=== PATIENT | male | born 1965 | race Caucasian/White ===

== ENCOUNTER → 2016-10-26 | Outpatient (CLI) | payer OTHER | LOC: KOH-I 12:06 | DX: S60.032A Contusion of left middle finger without damage to nail, initial encounter (principal) | CPT/HCPCS: 73140 ==

== ENCOUNTER → 2016-12-14 | Outpatient (CLI) | payer BC, OTHER | LOC: KOH-I 13:56 | DX: M50.13 Cervical disc disorder with radiculopathy, cervicothoracic region (principal); R53.1 Weakness; M50.30 Other cervical disc degeneration, unspecified cervical region; G93.89 Other specified disorders of brain | CPT/HCPCS: 72141 ==

== ENCOUNTER → 2021-04-08 | Outpatient (CLI) | payer BC ==
[~2021-04-08] MED LIST: DEPAKOTE500 MG PO; ECOTRIN81 MG PO; FARXIGA10 MG PO; GLUCOPHAGE1000 MG PO; IMITREX6 MG/0.51 SC; K-DUR TAB 20 M20 MEQ PO; LASIX20 MG PO; LIPITOR TAB 2020 MG PO; LISINOPRIL10 MG PO; LOPRESSOR50 MG PO; NEURONTIN 400400 MG PO; NOVOLOG MI100 UNIT/1 SQ; PAXIL40 MG PO; VICTOZA 1818 MG/3 ML SC; ZANAFLEX4 MG PO
[2021-04-08 16:14] LABS: BUN/CREATININE RATIO 16 (0-10)
== END ==
LOC: US 13:17
PROVIDERS: Internal Medicine Nephrology
DX: R80.9 Proteinuria, unspecified (principal); N28.1 Cyst of kidney, acquired
CPT/HCPCS: 36415; 80053

== ENCOUNTER → 2021-07-21 | Outpatient (CLI) | payer BC | LOC: CT 08:39 | DX: F03.91 Unspecified dementia, unspecified severity, with behavioral disturbance (principal); G43.701 Chronic migraine without aura, not intractable, with status migrainosus; R42 Dizziness and giddiness; G47.09 Other insomnia; J32.9 Chronic sinusitis, unspecified | CPT/HCPCS: 70470; 93880; Q9967 ==

== ENCOUNTER → 2021-11-18 | Outpatient (CLI) | payer BC, MEDICARE ==
[2021-11-19 08:16] LABS: RPR Non Reactive (Non Reactive)
[2021-11-19 13:16] LABS: RHEUMATOID ARTHRITIS FACTOR <10.0 IU/mL (<14.0)
[2021-11-19 14:17] LABS: ANTI-DSDNA ANTIBODIES <1 IU/mL (0-9)
[2021-11-19 15:11] LABS: LYME TOTAL ANTIBODY EIA Negative (Negative)
== END ==
LOC: LAB 09:15
PROVIDERS: Psychiatry & Neurology Neurology
DX: E11.42 Type 2 diabetes mellitus with diabetic polyneuropathy (principal); M79.604 Pain in right leg; M79.605 Pain in left leg; F41.9 Anxiety disorder, unspecified; R20.0 Anesthesia of skin; G43.709 Chronic migraine without aura, not intractable, without status migrainosus; R41.3 Other amnesia; G44.309 Post-traumatic headache, unspecified, not intractable; R26.81 Unsteadiness on feet; Z87.891 Personal history of nicotine dependence
CPT/HCPCS: 36415; 82607; 82746; 84443; 85652; 86038; 86225; 86255; 86431; 86592; 86618

== ENCOUNTER → 2021-11-30 | Outpatient (CLI) | payer BC, MEDICARE | LOC: EMI 10:39 | DX: G43.709 Chronic migraine without aura, not intractable, without status migrainosus (principal); G44.309 Post-traumatic headache, unspecified, not intractable; F41.9 Anxiety disorder, unspecified; R20.0 Anesthesia of skin; M79.604 Pain in right leg; M79.605 Pain in left leg; R41.3 Other amnesia; E11.42 Type 2 diabetes mellitus with diabetic polyneuropathy; Z87.891 Personal history of nicotine dependence | CPT/HCPCS: 70551 ==